=== PATIENT | male | born 1990 | race Caucasian/White ===

== ENCOUNTER 2016-12-17 18:20 | Emergency (ER) | payer MEDICAID ==
[2016-12-17] MEDS ORDERED: Ketorolac INJ* 60 MG/2 ML VIAL IM ONE (18:38)
[2016-12-17] MEDS ORDERED: Cyclobenzaprine TAB* 10 MG PO ONE (18:38)
--- NOTE | 2016-12-17 18:43 | ED ---
Back Pain - HPI Summary HPI Summary: Patient presents with four years of back pain that began without incident or known trauma. He presents today because he quit using heroine daily for pain a month ago and can't deal with the pain. He has has tried 800mg 3-4 times daily without relief and snorted heroine yesterday to help. He denies N/T, incontinence of stool or urine, inability to ambulate or decrease in strength. His pain is made worse with movement. He has pain when he bears down to have a BM. - History of Current Complaint Chief Complaint: EDBackInjuryPain Stated Complaint: BACK PAIN Time Seen by Provider: 12/17/16 18:29 Hx Obtained From: Patient Onset/Duration: Gradual Onset Onset/Duration: Atraumatic - 4 years ago, Still Present Timing: Constant Back Pain Location: Is Discrete @ - low back Severity Initially: Severe Severity Currently: Severe Pain Intensity: 9 Character: Dull, Aching, Spasmodic Aggravating Symptom(s): Movement Alleviating Symptom(s): Nothing Associated Signs And Symptoms: Positive: Pain with Weight Bearing Related History: Previous Back Injury - Allergies/Home Medications Allergies/Adverse Reactions: Allergies Allergy/AdvReac Type Severity Reaction Status Date / Time Diphenhydramine Allergy Rash Verified 05/17/16 12:41 [From Benadryl] PMH/Surg Hx/FS Hx/Imm Hx Endocrine/Hematology History: Denies: Hx Diabetes, Hx Thyroid Disease Cardiovascular History: Denies: Hx Congestive Heart Failure, Hx Deep Vein Thrombosis, Hx Hypertension , Hx Myocardial Infarction, Hx Pacemaker/ICD Respiratory History: Denies: Hx Asthma, Hx Chronic Obstructive Pulmonary Disease (COPD), Hx Lung Cancer, Hx Pneumonia, Hx Pulmonary Embolism GI History: Denies: Hx Gall Bladder Disease, Hx Gastrointestinal Bleed, Hx Ulcer, Hx Urosepsis History: Denies: Hx Kidney Stones, Hx Renal Disease Musculoskeletal History: Reports: Hx Back Problems Neurological History: Denies: Hx Dementia, Hx Migraine, Hx Seizures, Hx Transient Ischemic Attacks (TIA) Psychiatric History: Denies: Hx Anxiety, Hx Depression, Hx Schizophrenia, Hx Bipolar Disorder Infectious Disease History: No Infectious Disease History: Denies: Hx Clostridium Difficile, Hx Hepatitis, Hx Human Immunodeficiency Virus (HIV), Hx of Known/Suspected MRSA, Hx Shingles, Hx Tuberculosis, Traveled Outside the [place] in Last 30 Days - Family History Known Family History: Positive: None Negative: Renal Disease, Blood Disorder - Social History Occupation: Unemployed Lives: With Family Alcohol Use: None Hx Substance Use: No Substance Use Type: Reports: Heroin Substance Use Comment - Amount & Last Used: 12/16/2016 Hx Tobacco Use: Yes Smoking Status (MU): Light Every Day Tobacco Smoker Type: Cigarettes Amount Used/How Often: 1 PPD Cessation Counseling: Patient Advised to Stop Review of Systems Positive: Myalgia. Negative: Decreased ROM, Edema Negative: Weakness, Paresthesia, Numbness Positive: Anxious All Other Systems Reviewed And Are Negative: Yes Physical Exam Triage Information Reviewed: Yes Vital Signs On Initial Exam: Initial Vitals Temp Pulse Resp BP Pulse Ox 98.6 F 78 16 122/82 98 12/17/16 18:22 12/17/16 18:22 12/17/16 18:22 12/17/16 18:22 12/17/16 18:22 Vital Signs Reviewed: Yes Appearance: Positive: Well-Appearing, Well-Nourished, Pain Distress Skin: Positive: Warm, Skin Color Reflects Adequate Perfusion, Dry, Soft Head/Face: Positive: Normal Head/Face Inspection Eyes: Positive: EOMI, JORGE, Conjunctiva Clear ENT: Positive: Hearing grossly normal Neck: Positive: Supple, Nontender, No Lymphadenopathy Respiratory/Lung Sounds: Positive: Breath Sounds Present Cardiovascular: Positive: RRR Musculoskeletal: Positive: Strength/ROM Intact - +SLR bilaterally, Pain @ - TTP bilateral lumbar muscles. Negative: Edema Left, Edema Right Neurological: Positive: Sensory/Motor Intact, Alert, Oriented to Person Place, Time, [place] Bundle Intact Distally, Abnormal Gait Psychiatric: Positive: Affect/Mood Appropriate AVPU Assessment: Alert Diagnostics - Vital Signs Vital Signs Temp Pulse Resp BP Pulse Ox 12/17/16 18:22 98.6 F 78 16 122/82 98 - Laboratory Lab Statement: Any lab studies that have been ordered have been reviewed, and results considered in the medical decision making process. - Radiology No standard instances Xray Interpretation: No Acute Changes Radiology Interpretation Completed By: Radiologist Back Pain Course/Dx - Course Course Of Treatment: [facility] who let me know the patient could be treated with Tramadol and will see one of their providers tomorrow. He will be treated here and discharged back to [facility] - Diagnoses Differential Diagnosis/HQI/PQRI: Positive: Arthritis, Cauda Equina Syndrome, Fracture, Herniated Disc, Osteoporosis, Strain, Sprain Provider Diagnoses: Chronic low back pain Discharge - Discharge Plan Condition: Stable Disposition: HOME Patient Education Materials: Chronic Back Pain (ED) [place]errals: [facility] [place] [facility] [place]Outside] Additional Instructions: Please work with the medical provider at [facility] to help address your pain. 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
--- NOTE | 2016-12-17 19:29 | RAD ---
Indication: Back pain. 5 views of the lumbar spine demonstrate vertebral bodies to be normal in height and alignment. Disc spaces all well-preserved. Pedicles appear intact. IMPRESSION: No fracture or other abnormality of the lumbar spine is noted.
[2016-12-17] MEDS ORDERED: traMADol TAB* 50 MG PO ONE (19:48)
[2016-12-17 20:23] VITALS: BP 133/80
== END 2016-12-17 20:21 | disposition home or self-care (01) ==
LOC: ED 18:20
DX: M54.5 Low back pain (principal); M54.9 Dorsalgia, unspecified; F17.210 Nicotine dependence, cigarettes, uncomplicated; F41.9 Anxiety disorder, unspecified
CPT/HCPCS: 72110; 96372; 99282; A9270-GY; J1885

== ENCOUNTER 2016-12-19 11:02 | Emergency (ER) | payer MEDICAID ==
[2016-12-19 11:21] VITALS: BP 122/81
--- NOTE | 2016-12-19 11:56 | ED ---
Back Pain - HPI Summary HPI Summary: 26 male presents - History of Current Complaint Chief Complaint: EDBackInjuryPain Stated Complaint: BACK PAIN Time Seen by Provider: 12/19/16 11:18 Pain Intensity: 9 - Allergies/Home Medications Allergies/Adverse Reactions: Allergies Allergy/AdvReac Type Severity Reaction Status Date / Time Diphenhydramine Allergy Rash Verified 05/17/16 12:41 [From Benadryl] PMH/Surg Hx/FS Hx/Imm Hx Endocrine/Hematology History: Denies: Hx Diabetes, Hx Thyroid Disease Cardiovascular History: Denies: Hx Congestive Heart Failure, Hx Deep Vein Thrombosis, Hx Hypertension , Hx Myocardial Infarction, Hx Pacemaker/ICD Respiratory History: Denies: Hx Asthma, Hx Chronic Obstructive Pulmonary Disease (COPD), Hx Lung Cancer, Hx Pneumonia, Hx Pulmonary Embolism GI History: Denies: Hx Gall Bladder Disease, Hx Gastrointestinal Bleed, Hx Ulcer, Hx Urosepsis History: Denies: Hx Kidney Stones, Hx Renal Disease Musculoskeletal History: Reports: Hx Back Problems Neurological History: Denies: Hx Dementia, Hx Migraine, Hx Seizures, Hx Transient Ischemic Attacks (TIA) Psychiatric History: Denies: Hx Anxiety, Hx Depression, Hx Schizophrenia, Hx Bipolar Disorder Infectious Disease History: Yes Infectious Disease History: Denies: Hx Clostridium Difficile, Hx Hepatitis, Hx Human Immunodeficiency Virus (HIV), Hx of Known/Suspected MRSA, Hx Shingles, Hx Tuberculosis, Traveled Outside the [place] in Last 30 Days - Family History Known Family History: Positive: None Negative: Renal Disease, Blood Disorder - Social History Alcohol Use: None Hx Substance Use: No Substance Use Type: Reports: Heroin Substance Use Comment - Amount & Last Used: 12/16/2016 Hx Tobacco Use: Yes Smoking Status (MU): Light Every Day Tobacco Smoker Type: Cigarettes Amount Used/How Often: 1 PPD Physical Exam Vital Signs On Initial Exam: Initial Vitals Temp Pulse Resp BP Pulse Ox 98.8 F 78 15 122/81 98 12/19/16 11:13 12/19/16 11:13 12/19/16 11:13 12/19/16 11:13 12/19/16 11:13 Diagnostics - Vital Signs Vital Signs Temp Pulse Resp BP Pulse Ox 12/19/16 11:13 98.8 F 78 15 122/81 98 - Laboratory Lab Statement: Any lab studies that have been ordered have been reviewed, and results considered in the medical decision making process. - Radiology right middle finger Xray Interpretation: Positive (See Comments) - THERE IS AN INTACT NAIL THROUGH THE [place]MAR SOFT TISSUES OF THE RIGHT MIDDLE FINGER DISTAL PHALANX WITH NO VISIBLE INVOLVEMENT OF THE UNDERLYING BONE. Radiology Interpretation Completed By: Radiologist Back Pain Course/Dx - Diagnoses Differential Diagnosis/HQI/PQRI: Positive: Arthritis, Strain, Sprain, Other Provider Diagnoses: Chronic back pain, Spondylosis Discharge - Discharge Plan Condition: Stable Disposition: HOME Patient Education Materials: Chronic Back Pain (ED) Referrals: Tulio Velez MD [Primary Care Provider] - [facility] [place] [facility] [Outside] Cornelio Stapleton MD [Medical Doctor] - Additional Instructions: Please work with the medical provider at [facility] to help address your pain. 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
[2016-12-19] MEDS ORDERED: Ibuprofen TAB* 800 MG PO ONE ×3 (12:26→12:27)
--- NOTE | 2016-12-19 12:47 | RAD ---
Indication: Pain at the T9-T12 levels post fall a few months ago. Comparison: May 17, 2016 CT abdomen pelvis and May 13, 2012 chest radiograph. Technique: AP and lateral views thoracic spine. Report: Normal alignment. Negative for vertebral body fracture. The pedicles appear intact at each level. Mild vertebral endplate osteophytosis at the mid to distal thoracic spine without significant disc space narrowing. Unremarkable paravertebral soft tissue contours. Clear limited visualized lungs and pleural spaces. IMPRESSION: Multilevel mild thoracic degenerative spondylosis with worsening compared with the 2012 exam. No traumatic injury evident.
[2016-12-19] MEDS ORDERED: traMADol TAB* 50 MG PO ONE (14:06)
== END 2016-12-19 14:44 | disposition home or self-care (01) ==
LOC: ED 11:02
DX: M54.9 Dorsalgia, unspecified (principal); M47.9 Spondylosis, unspecified
CPT/HCPCS: 72070; 99282; A9270-GY

== ENCOUNTER 2018-11-29 19:34 | Inpatient (IN) | payer MEDICAID, OTHER ==
[2018-11-29 20:11] LABS: Urine Appearance Clear; Urine Bacteria Absent (Absent); Urine Bilirubin Negative (Negative); Urine Blood 1+ (Negative); Urine Color Yellow; Urine Glucose Negative (Negative); Urine Ketones Trace (Negative); Urine Nitrite Negative (Negative); Urine Protein Negative (Negative); Urine Red Blood Cell Absent (Absent); Urine Urobilinogen Negative (Negative); Urine White Blood Cell Absent (Absent)
[2018-11-29 20:41] LABS: Albumin 4.4 g/dL (3.2-5.2); Anion Gap 9 mmol/L (2-11); CO2 Carbon Dioxide 22 mmol/L (22-32); Calcium 9.6 mg/dL (8.6-10.3); Chloride 103 mmol/L (101-111); Potassium 4.1 mmol/L (3.5-5.0); Sodium 134 mmol/L (135-145)
[2018-11-29 20:42] LABS: ABS Basophils 0.1 10^3/ul (0-0.2); ABS Eosinophils 0.1 10^3/ul (0-0.6); ABS Lymphocytes 2.5 10^3/ul (1.0-4.8); ABS Neutrophils 5.4 10^3/ul (1.5-7.7); ABS Nucleated RBC 0 10^3/ul; Eosinophil % 0.9 %; Hematocrit 39 % (42-52); Hemoglobin 13.1 g/dl (14.0-18.0); Lymphocyte % 27.7 %; Mean Corpuscular HGB Conc 33 g/dl (31-36); Mean Corpuscular Hemoglobin 31 pg (27-31); Mean Corpuscular Volume 93 fL (80-94); Mean Platelet Volume 9.8 fL (7.4-10.4); Nucleated Red Blood Cells % 0; Platelet Count 122 10^3/ul (150-450); Red Blood Count 4.21 10^6/ul (4.00-5.40); Red Cell Distribution Width 15 % (10.5-15); White Blood Count 9.1 10^3/ul (3.5-10.8)
[2018-11-29 20:46] LABS: ALT 65 U/L (7-52); AST 35 U/L (13-39); Albumin/Globulin Ratio 1.2 (1-3); Alkaline Phosphatase 82 U/L (34-104); BUN/Creatinine Ratio 12.1 (8-20); Blood Urea Nitrogen 8 mg/dL (6-24); C Reactive Protein 126.48 mg/L (<8.01); EGFR African American 173.9 (>60); EGFR Non-African American 143.7 (>60); Globulin 3.8 g/dL (2-4); Glucose 78 mg/dL (70-100); Total Protein 8.2 g/dL (6.4-8.9)
[2018-11-29] MEDS ORDERED: Acetaminophen TAB* 325 MG PO ONE (21:05)
[2018-11-29] MEDS ORDERED: Diazepam TAB(*) 5 MG PO ONE (21:09)
[2018-11-29] MEDS ORDERED: Iohexol 300* (CONTRAST) 10 ML SDV IV ONE (21:11)
[2018-11-29] MEDS ORDERED: Morphine VIAL* 10 MG/ML 1 ML VIAL IV ONE (23:06)
[2018-11-29] MEDS ORDERED: NS 0.9% 1000 ML** 1,000 ML IV ONE (23:06)
[2018-11-29] MEDS ORDERED: cefTRIAXone(*) 1 GM in NS 0.9% 50 ML* 50 ML IVPB ONE (23:09)
[2018-11-29] MEDS ORDERED: Vancomycin(*) 1,000 MG in NS 0.9% 250 ML* 250 ML IVPB ONE (23:09)
--- NOTE | 2018-11-29 23:17 | ED ---
Back Pain - HPI Summary HPI Summary: Patient complains of sudden onset back pain 2 weeks, worse over the past 4 days. States some shortness of breath when pain is intense. Pain currently rated 9/10. Denies prior history of same pain, trauma, GOMEZ, fever, cough, sore throat, CP, SOB, N/V/D, abdominal pain, change in urine, change in BM, penis or testicular symptoms. Denies medical history. Patient on Suboxone, states last IV drug use December 2017. Denies EtOH. - History of Current Complaint Chief Complaint: EDBackInjuryPain Stated Complaint: BACK PAIN Time Seen by Provider: 11/29/18 19:46 Hx Obtained From: Patient Onset/Duration: Sudden Onset Onset/Duration: Started Weeks Ago Timing: Constant Back Pain Location: Is Discrete @ Severity Initially: Severe Severity Currently: Severe Pain Intensity: 10 Pain Scale Used: 0-10 Numeric Character: Throbbing, Spasmodic Aggravating Symptom(s): Movement Alleviating Symptom(s): Position Associated Signs And Symptoms: Positive: Negative - Allergies/Home Medications Allergies/Adverse Reactions: Allergies Allergy/AdvReac Type Severity Reaction Status Date / Time diphenhydramine Allergy Mild Rash Verified 11/30/18 01:32 Home Medications: Home Medications Buprenorp/Nalox 8-2 MG FILM [Suboxone 8 mg-2 mg Sl Film] 1 each SL BID 11/29/18 [History Confirmed 11/29/18] Omeprazole 40 mg PO DAILY 11/29/18 [History Confirmed 11/29/18] Sertraline HCl 100 mg PO DAILY 11/29/18 [History Confirmed 11/29/18] Zolpidem Tartrate [Ambien] 10 mg PO ACHS 11/29/18 [History Confirmed 11/29/18] PMH/Surg Hx/FS Hx/Imm Hx Endocrine/Hematology History: Denies: Hx Diabetes, Hx Thyroid Disease Cardiovascular History: Denies: Hx Congestive Heart Failure, Hx Deep Vein Thrombosis, Hx Hypertension , Hx Myocardial Infarction, Hx Pacemaker/ICD Respiratory History: Denies: Hx Asthma, Hx Chronic Obstructive Pulmonary Disease (COPD), Hx Lung Cancer, Hx Pneumonia, Hx Pulmonary Embolism GI History: Denies: Hx Gall Bladder Disease, Hx Gastrointestinal Bleed, Hx Ulcer, Hx Urosepsis History: Denies: Hx Kidney Stones, Hx Renal Disease Musculoskeletal History: Reports: Hx Back Problems EENT History: Denies: Hx Deafness Neurological History: Denies: Hx Dementia, Hx Migraine, Hx Seizures, Hx Transient Ischemic Attacks (TIA), Other Neuro Impairments/Disorders Psychiatric History: Denies: Hx Anxiety, Hx Depression, Hx Schizophrenia, Hx Bipolar Disorder - Surgical History Surgery Procedure, Year, and Place: none Infectious Disease History: No Infectious Disease History: Denies: Hx Clostridium Difficile, Hx Hepatitis, Hx Human Immunodeficiency Virus (HIV), Hx of Known/Suspected MRSA, Hx Shingles, Hx Tuberculosis, Traveled Outside the [place] in Last 30 Days - Family History Known Family History: Positive: None Negative: Renal Disease, Blood Disorder - Social History Alcohol Use: None Hx Substance Use: No Substance Use Type: Reports: Heroin, Marijuana Substance Use Comment - Amount & Last Used: pt denies opioid use, on suboxone Hx Tobacco Use: Yes Smoking Status (MU): Light Every Day Tobacco Smoker Type: Cigarettes Amount Used/How Often: 1 PPD Review of Systems Constitutional: Negative Eyes: Negative ENT: Negative Cardiovascular: Negative Respiratory: Negative Gastrointestinal: Negative Genitourinary: Negative Musculoskeletal: Other Skin: Negative Neurological: Negative Psychological: Normal All Other Systems Reviewed And Are Negative: Yes Physical Exam - Summary Physical Exam Summary: Bony point tenderness along thoracic spine. No evidence of ecchymosis, erythema , deformity, swelling, mass. Mild paraspinal muscle tenderness to palpation along thoracic spine. Abdomen soft nontender. PMS intact in lower extremities. Extension of bilateral hips increases back pain. Triage Information Reviewed: Yes Vital Signs On Initial Exam: Initial Vitals Temp Pulse Resp BP Pulse Ox 98.4 F 79 20 121/88 94 11/29/18 19:35 11/29/18 19:35 11/29/18 19:35 11/29/18 19:35 11/29/18 19:35 Vital Signs Reviewed: Yes Appearance: Positive: Well-Appearing Skin: Positive: Warm Head/Face: Positive: Normal Head/Face Inspection Eyes: Positive: Normal ENT: Positive: Normal ENT inspection Neck: Positive: Supple Respiratory/Lung Sounds: Positive: Clear to Auscultation Cardiovascular: Positive: Normal Abdomen Description: Positive: Nontender Musculoskeletal: Positive: Normal Neurological: Positive: Normal Psychiatric: Positive: Normal AVPU Assessment: Alert - [place] Coma Scale Best Eye Response: 4 - Spontaneous Best Motor Response: 6 - Obeys Commands Best Verbal Response: 5 - Oriented Coma Scale Total: 15 Diagnostics - Vital Signs Vital Signs Temp Pulse Resp BP Pulse Ox 11/29/18 22:47 99.1 F 14 11/29/18 22:45 81 119/67 95 11/29/18 21:42 98.4 F 72 16 141/88 99 11/29/18 21:21 16 11/29/18 19:35 98.4 F 79 20 121/88 94 - Laboratory Lab Results: Lab Results 11/29/18 11/29/18 11/29/18 Range/Units 19:54 20:23 20:23 WBC 9.1 (3.5-10.8) 10^3/ul RBC 4.21 (4.00-5.40) 10^6/ul Hgb 13.1 L (14.0-18.0) g/dl Hct 39 L (42-52) % MCV 93 (80-94) fL MCH 31 (27-31) pg MCHC 33 (31-36) g/dl RDW 15 (10.5-15) % Plt Count 122 L (150-450) 10^3/ul MPV 9.8 (7.4-10.4) fL Neut % (Auto) 59.4 % Lymph % (Auto) 27.7 % [place] % (Auto) 11.4 % Eos % (Auto) 0.9 % Baso % (Auto) 0.6 % Absolute Neuts (auto) 5.4 (1.5-7.7) 10^3/ul Absolute Lymphs (auto) 2.5 (1.0-4.8) 10^3/ul Absolute Monos (auto) 1.0 H (0-0.8) 10^3/ul Absolute Eos (auto) 0.1 (0-0.6) 10^3/ul Absolute Basos (auto) 0.1 (0-0.2) 10^3/ul Absolute Nucleated RBC 0 10^3/ul Nucleated RBC % 0 D-Dimer, Quantitative (Less Than 230) ng/mL Sodium 134 L (135-145) mmol/L Potassium 4.1 (3.5-5.0) mmol/L Chloride 103 (101-111) mmol/L Carbon Dioxide 22 (22-32) mmol/L Anion Gap 9 (2-11) mmol/L BUN 8 (6-24) mg/dL Creatinine 0.66 L (0.67-1.17) mg/dL Est GFR ( Amer) 173.9 (>60) Est GFR (Non-Af Amer) 143.7 (>60) BUN/Creatinine Ratio 12.1 (8-20) Glucose 78 (70-100) mg/dL Lactic Acid (0.5-2.0) mmol/L Calcium 9.6 (8.6-10.3) mg/dL Total Bilirubin 0.50 (0.2-1.0) mg/dL AST 35 (13-39) U/L ALT 65 H (7-52) U/L Alkaline Phosphatase 82 (34-104) U/L C-Reactive Protein 126.48 H (<8.01) mg/L Total Protein 8.2 (6.4-8.9) g/dL Albumin 4.4 (3.2-5.2) g/dL Globulin 3.8 (2-4) g/dL Albumin/Globulin Ratio 1.2 (1-3) Lipase < 10 L (11.0-82.0) U/L Urine Color Yellow Urine Appearance Clear Urine pH 6.0 (5-9) Ur Specific [place] 1.010 (1.010-1.030) Urine Protein Negative (Negative) Urine Ketones Trace A (Negative) Urine Blood 1+ A (Negative) Urine Nitrate Negative (Negative) Urine Bilirubin Negative (Negative) Urine Urobilinogen Negative (Negative) Ur Leukocyte Esterase Negative (Negative) Urine WBC (Auto) Absent (Absent) Urine RBC (Auto) Absent (Absent) Urine Bacteria Absent (Absent) Urine Glucose Negative (Negative) 11/29/18 11/29/18 Range/Units 20:23 20:23 WBC (3.5-10.8) 10^3/ul RBC (4.00-5.40) 10^6/ul Hgb (14.0-18.0) g/dl Hct (42-52) % MCV (80-94) fL MCH (27-31) pg MCHC (31-36) g/dl RDW (10.5-15) % Plt Count (150-450) 10^3/ul MPV (7.4-10.4) fL Neut % (Auto) % Lymph % (Auto) % [place] % (Auto) % Eos % (Auto) % Baso % (Auto) % Absolute Neuts (auto) (1.5-7.7) 10^3/ul Absolute Lymphs (auto) (1.0-4.8) 10^3/ul Absolute Monos (auto) (0-0.8) 10^3/ul Absolute Eos (auto) (0-0.6) 10^3/ul Absolute Basos (auto) (0-0.2) 10^3/ul Absolute Nucleated RBC 10^3/ul Nucleated RBC % D-Dimer, Quantitative 251 H (Less Than 230) ng/mL Sodium (135-145) mmol/L Potassium (3.5-5.0) mmol/L Chloride (101-111) mmol/L Carbon Dioxide (22-32) mmol/L Anion Gap (2-11) mmol/L BUN (6-24) mg/dL Creatinine (0.67-1.17) mg/dL Est GFR ( Amer) (>60) Est GFR (Non-Af Amer) (>60) BUN/Creatinine Ratio (8-20) Glucose (70-100) mg/dL Lactic Acid 0.6 (0.5-2.0) mmol/L Calcium (8.6-10.3) mg/dL Total Bilirubin (0.2-1.0) mg/dL AST (13-39) U/L ALT (7-52) U/L Alkaline Phosphatase (34-104) U/L C-Reactive Protein (<8.01) mg/L Total Protein (6.4-8.9) g/dL Albumin (3.2-5.2) g/dL Globulin (2-4) g/dL Albumin/Globulin Ratio (1-3) Lipase (11.0-82.0) U/L Urine Color Urine Appearance Urine pH (5-9) Ur Specific [place] (1.010-1.030) Urine Protein (Negative) Urine Ketones (Negative) Urine Blood (Negative) Urine Nitrate (Negative) Urine Bilirubin (Negative) Urine Urobilinogen (Negative) Ur Leukocyte Esterase (Negative) Urine WBC (Auto) (Absent) Urine RBC (Auto) (Absent) Urine Bacteria (Absent) Urine Glucose (Negative) Result Diagrams: 11/29/18 20:23 11/29/18 20:23 Lab Statement: Any lab studies that have been ordered have been reviewed, and results considered in the medical decision making process. Back Pain Course/Dx - Course Course Of Treatment: Patient complains of sudden onset back pain 2 weeks, worse over the past 4 days. States some shortness of breath when pain is intense. Denies prior history of same pain, trauma, GOMEZ, fever, cough, sore throat, CP, SOB, N/V/D, abdominal pain, change in urine, change in BM, penis or testicular symptoms. Denies medical history. Patient on Suboxone, states last IV drug use December 2017. Denies EtOH. Physical exam:Bony point tenderness along thoracic spine. No evidence of ecchymosis, erythema, deformity, swelling , mass. Mild paraspinal muscle tenderness to palpation along thoracic spine. Abdomen soft nontender. PMS intact in lower extremities. Extension of bilateral hips increases back pain. Patient initially refusing opiates. No relief with Tylenol or Valium. Vital signs within normal limits. WBC within normal limits. CRP 126. CT abdomen and pelvis with contrast essentially negative. Symptoms concerning for epidural abscess. D-dimer 251. (At this time more concern for spinal abscess then pulmonary embolism. However patient will be admitted and CTA can be performed later if indicated.) Will initiate IV antibiotics, admit to hospitalist, pending MRI in the morning for further evaluation of possible spinal abscess. - Diagnoses Provider Diagnoses: Back pain Discharge - Sign-Out/Discharge Documenting (check all that apply): Patient Departure Patient Received Moderate/Deep Sedation with Procedure: No - Discharge Plan Condition: Stable Disposition: ADMITTED TO [facility] - Billing Disposition and Condition Condition: STABLE Disposition: Admitted to [facility]
[2018-11-29] MEDS ORDERED: Ketorolac INJ* 30 MG/ML 1 ML VIAL IV PUSH ONE (23:22)
[2018-11-30] MEDS ORDERED: Nicotine Lozenge* 4 MG LOZENGE MT PRN (01:10)
[2018-11-30] MEDS ORDERED: NS 0.9% 1000 ML** 1,000 ML IV SCH (01:15)
[2018-11-30] MEDS ORDERED: Vancomycin per Pharmacy* NOTE FOLLOW UP SCH (02:00)
[2018-11-30 02:05] LABS: Creatine Kinase 45 U/L (10-223)
[2018-11-30] MEDS ORDERED: hydrOXYzine HCL TAB* 25 MG PO PRN (02:52)
[2018-11-30] MEDS ORDERED: Buprenorphine TAB* 8 MG PO SCH (03:00)
[2018-11-30] MEDS ORDERED: Buprenorphine TAB* 2 MG TAB.SL SL SCH (03:00)
[2018-11-30] MEDS ORDERED: Buprenorphine TAB* 2 MG TAB.SL PO SCH (03:00)
[2018-11-30 04:26] LABS: Influenza A Molecular NEGATIVE (Negative); Influenza B Molecular NEGATIVE (Negative)
[2018-11-30] MEDS ORDERED: cefTRIAXone(*) 1 GM in NS 0.9% 50 ML* 50 ML IVPB ONE (04:30)
[2018-11-30] MEDS: Buprenorphine TAB* 8 MG SL SCH ×3 (05:01→21:37)
[2018-11-30] MEDS: Heparin VIAL(*) 5000 UNITS/ML VIAL (FIVE THOUSAND) SUBCUT SCH ×3 (05:04→21:38)
[2018-11-30] MEDS ORDERED: Vancomycin(*) 1,000 MG in NS 0.9% 250 ML* 250 ML IVPB SCH (06:00)
--- NOTE | 2018-11-30 06:07 | HP ---
HISTORY AND PHYSICAL: DATE OF ADMISSION: 11/30/18. PRIMARY CARE PROVIDER: Kimberlee Nieves MD. CLINICAL REGISTERED NURSE: Tori Sofia, his mother. CODE STATUS: Full. CHIEF COMPLAINT: Back pain and headache. SOURCE OF INFORMATION: HPI is obtained from review of medical chart, and interview with the patient. The patient is an adequate historian. HISTORY OF PRESENT ILLNESS: 28-year-old male with past medical history of opiate use disorder, currently in remission on MAT/Suboxone since December of 2017, tobacco use, and history of chronic low and midback pain, who presents to the emergency room [facility] with complaints of subacute back pain for the last two weeks that has rapidly increased in intensity in the last four days. The patient said that the pain started in his midback gradually and it increasingly became worse to the point where for the last two days it had sharp, stabbing chronic midback pain that radiates to an area under his left ribcage and has no relieving factors. He does say that bending his head towards his chest and raising his knees makes the pain particularly worse and it got to the point where he has been unable to sleep for the past 24 hours, could not find a position where he could get comfortable. Furthermore, for the last 24 hours he says that he has had subjective fevers and chills although he measured his temperature at home and it was not elevated. He also says that the pain gets so bad at times that he has to take short, shallow breaths when it is very intense. Furthermore, he said that this pain has been accompanied with a headache without vision changes off and on for the last week. ROS: He denies any oral complaints or sore throat or dysphagia. He denies any rommel chest pain or palpitations. He denies any cough. He denies any nausea, vomiting, diarrhea or constipation. He does say that he has mild left upper quadrant pain in terms of his abdomen, really feels that it is more underneath his ribcage and only when it is radiating from the back. He denies diffuse myalgias, or arthralgias or weakness. He denies any new rashes or lesions. He denies any focal weakness or numbness. He denies any worsening depression or anxiety. He denies any hematuria or dysuria, any polyuria, or polydipsia. He denies easy bruising or bleeding or any new lymphadenopathy and he says he has not been around any sick contacts and he has had no new changes in his activity or no inciting factors that he can think of. EMERGENCY ROOM COURSE: When the patient arrived, his vital signs are stable. His temperature is 99.1. His respiratory rate is 14. His pulse is 68 and sinus. His blood pressure is 110/63. Labs show thrombocytopenia to 122. D- dimer is elevated at 251. Sodium is 134, ALT is mildly elevated at 65. He had a CRP level that is greater than 100. Urinalysis is done that shows no active signs of infection. CT of the abdomen was completed that showed mild bladder thickening, but otherwise no acute findings. A thoracic spine radiograph shows no acute fracture or bony pathology. Flu swab was not done. The patient received ceftriaxone, Valium, Ketoralac, and vancomycin and the hospitalist team was asked to evaluate this patient for further monitoring, diagnostics, and treatment. PAST MEDICAL HISTORY: Opiate use disorder, polysubstance abuse, both in remission since December 2017, depression prior chronic low back pain tobacco use. PAST SURGICAL HISTORY: History of an appendectomy. MEDICATIONS: 1. Buprenorphine/naloxone 05/01 one sublingual strip b.i.d. He has recently lowered his dose from 09/01 b.i.d. 2. Omeprazole 40 mg p.o. daily. 3. Sertraline 100 mg daily. 4. Zolpidem 10 mg p.o. q.h.s. p.r.n. for sleep. ALLERGIES: He has allergy to DIPHENHYDRAMINE. FAMILY HISTORY: His mother has a history of DVTs, but otherwise is alive and well. His father has a history of polysubstance abuse. SOCIAL HISTORY: He lives at home with his mother in [place] and currently he is not working as he is attending intensive outpatient therapy at [facility] in [place]. Tob: He smokes about a pack a day. He has a 74-vgtk-tcoo history. Alcohol: currently does not drink alcohol. Illicits: He is a former IV drug user of heroin and has been in remission for the past year and currently on Suboxone. REVIEW OF SYSTEMS: As per HPI with the only other pertinent review of systems he said is that he did have about 2 weeks ago mild lower extremity edema that resolved on its own. PHYSICAL EXAMINATION GENERAL APPEARANCE: He is a young man lying very still in bed in mild distress , well-developed, well-nourished, pleasant and cooperative with exam. VITAL SIGNS: At the time physical exam, the patient's vital signs are temperature of 98.7, pulse is 69, respiratory rate of 16, oxygen saturation 98% on room air, and blood pressure of 124/86. NECK: His neck is mildly rigid with limited ROM and he has no cervical lymphadenopathy or supraclavicular lymphadenopathy. HEENT: The patient is normocephalic and atraumatic. His pupils are equal and reactive to light. His extraocular muscles are intact. His sclerae are anicteric. His oropharynx is clear with dry mucous membranes. He has fair dentition with no obvious lesions or ulcers. RESPIRATORY: He is clear to auscultation bilaterally. CARDIAC: He has regular rate and rhythm with no murmurs, rubs, or gallops. GI: Belly is soft, nondistended, mildly tender to palpation in the left upper quadrant. No guarding, no rebound. Mildly enlarged liver with palpable liver edge : He has no suprapubic tenderness and no concerning rashes or lesions at the genital area. BACK AND SPINE: The patient has limited range of motion in flexion of his spine. He can flex only to about 30 degrees before he gets significant pain in his thoracic spine that radiates up. Furthermore, he has limited flexion of his neck and says that he gets immediate back pain when he tries to touch his chin to his chest. He has acute point tenderness to thoracic paraspinal muscles that persists to about the level of L1-L2. Otherwise, unremarkable back exam. His straight leg raise is negative bilaterally, although he does have pain on moving his knee up towards his chest. He describes that tightness. EXTREMITIES: He moves his lower extremities and upper extremities free with no tenderness to motion. NEUROLOGIC: His cranial nerves II through XII are intact. He has 5/5 strength in upper extremities and lower extremities. His sensation is intact. He is A and O x4. As above, I am concerned, he has some mild meningeal signs with +/- flexion of knees during flexion of neck to chin (Brudzinski), neg Kernigs sign SKIN: No overlying skin changes and he has scattered tattoos none of which are new and no new ulcers. DIAGNOSTIC STUDIES/LAB DATA: His white blood cell count of 9.1, hemoglobin of 13.1, hematocrit of 39, and platelets of 122. CMP was done that showed a sodium of 134, potassium of 4.1, chloride of 103, carbon dioxide of 22, BUN of 8 , creatinine of 0.6, glucose of 78, lactic acid of 0.6. AST of 35, ALT of 65, alkaline phosphatase of 82. CK was done shows 45. CRP is 126. Lipase is less than 10. UA was done which shows trace ketones and 1+ blood, but otherwise unremarkable. Abdomen and pelvis CT was performed which shows mild hepatomegaly, mild splenomegaly, status post appendectomy, mild urinary bladder thickening, trace free fluid in the pelvis and no other acute CT pathology. Thoracic spine radiograph was done that showed no acute fracture or bony abnormalities and lung parenchyma shows no active cardiopulmonary disease. Imaging and labs were reviewed by myself. ASSESSMENT AND PLAN: 28-year-old male with a past medical history of opiate use disorder in remission on medication-assisted therapy since December 2017, prior chronic low back pain, and tobacco use who presented with subacute back pain and elevated CRP of unknown origin. Differential for an elevated CRP includes bacterial and viral infections. Currently, his localizing symptoms are to acute spinal tenderness to the thoracic spine, along with GOMEZ and mild nuchal rigidity. 1. Back pain. As above differential includes possible spinal abscess, furthermore, can't r/o source of infection as meningitis. Performing a lumbar puncture without MRI or knowledge of whether there is spinal abscess is likely not safe. He is currently covered with vancomycin and ceftriaxone, which is reasonable and rec'd Meningitis dosing for both x1. --Continue abx while the workup is ongoing. --We will rule out spinal abscess with MRI of thoracic and lumbar spine in the morning. --Pain control is with Toradol around the clock and increasing Suboxone dosing from 8/2 to 12/3 b.i.d. can increase to 12/3 t.i.d. as needed. 2. Elevated CRP. As above, this is generally associated with infection. He also has mild thrombocytopenia, which is new. He has been pancultured. We will watch closely for developing source. We will continue with IV fluids for an additional 1 L at 125 cc per hour. We will also obtain a flu swab for this patient. 3. Thrombocytopenia likely in the setting of infection. He has no new medications. We will continue to monitor, furthermore he is elected for HIV test, which we can draw on morning labs. --Furthermore, pt has never been test for HIV and elects to be 4. Opiate use disorder. His home dose of buprenorphine is 8/2 b.i.d. He has been recently changed from 12/3 b.i.d., we will increase to 12/3 b.i.d. and up to t.i.d. here for pain control. The patient does not want opioid pain medication control unless absolutely necessary and we will attempt honor this request. 5. Depression. Continue Sertraline 100mg daily and Zolpidem 10 QHS, both prescribed by outside provider 6. Tobacco use. We will offer nicotine replacement therapy. 7. FEN. Unrestricted 8. DVT prophylaxis. We will start subcu heparin. 9. Code status: The patient is full code. Plan of care was discussed with the patient, who is in agreement for being admitted to the medical floor for further treatment and evaluation and his PCP will be notified on this admission. TIME SPENT: Forty minutes were spent on the execution of this H and P on admission with over half of that spent directly to the bedside with the patient , providing direct patient care. [id number]/[facility] #: [id number] NEREIDA
[2018-11-30] MEDS: Ketorolac INJ* 30 MG/ML 1 ML VIAL IV PUSH PRN (08:30)
[2018-11-30] MEDS: Acetaminophen TAB* 325 MG PO PRN (08:40)
[2018-11-30] MEDS: Sertraline* 100 MG TAB PO SCH (08:40)
[2018-11-30] MEDS: Nicotine PATCH 14 MG/24 HR* PATCH TRANSDERM SCH (08:55)
[2018-11-30] MEDS: Lidocaine PATCH 5%* 1 PATCH TRANSDERM SCH (08:59)
[2018-11-30] MEDS: cefTRIAXone VIAL(*) 1,000 MG VIAL IM SCH (11:54)
[2018-11-30] MEDS: Linezolid TAB* 600 MG PO SCH ×2 (11:56→21:35)
--- NOTE | 2018-11-30 14:23 | PN ---
Subjective Date of Service: 11/30/18 Interval History: Patient seen this morning. Nurse staff contacted me as he lost IV access and unable to start new IV site despite multiple attempts by several staff member. Also the nurse did notify me that accidentally he was given extra dose of suboxone 8mg, for a total of 20 mg of suboxone this morning (his scheduled dose was 12 mg). Patient seen and assess at bedside. I did order to place him on tele, and vitals Q 1hrs. Patient is conversing with me. He verbalized to me that he will be leaving this evening and he does not want to stay overnight. " I only stayed because the emergency room doctor told me that I will be staying and I can leave after my MRI..."! I attempted to clarify to him that the MRI will be done tomorrow in am unless there is emergency. The MRI would not dictate if he can leave. We do still have to wait for the BC etc...! He started to use the *F word and S* word. I asked him to refrain from using this kind of language. I did leave the room and I asked for a nursing staff to be present with me in the room for the remaining of the interview. I did go back to the room with nursing staff. I explained to him that the MRI won't be done unless there is an emergency and he will need IV abx. However; if he is not going to stay overnight, I can not justify the risk of placing central line and him decide to leave AMA later on this evening. When I asked him if he willing to stay, he replied "I have not decided..." I did order ceftriaxone 2 gm IM for now, zyvox 600 mg bid! Vanco and IV ceftriaxone on hold. If he refused to stay later on he can sign AMA, he is not medically cleared for discharge. If he remains, will need to have Picc line place, only if he agreeable to stay. Past Medical History: Unchanged from Admission Objective Active Medications: Acetaminophen (Tylenol Tab*) 650 mg PO Q4H PRN PRN Reason: FEVER/PAIN Last Admin: 11/30/18 08:40 Dose: 650 mg Buprenorphine HCl (Subutex Tab*) 8 mg SL BID YASMANY Last Admin: 11/30/18 08:39 Dose: 8 mg Ceftriaxone Sodium (Rocephin Vial(*)) 2,000 mg IM Q24H [facility] Last Admin: 11/30/18 11:54 Dose: 2,000 mg Heparin Sodium (Porcine) (Heparin Vial(*)) 5,000 units SUBCUT Q8HR [facility] Last Admin: 11/30/18 05:04 Dose: 5,000 units Hydroxyzine HCl (Atarax Tab*) 25 mg PO Q4H PRN PRN Reason: ANXIETY Last Admin: 11/30/18 08:40 Dose: 25 mg Ketorolac Tromethamine (Toradol Inj*) 30 mg IV PUSH Q6H PRN PRN Reason: PAIN Last Admin: 11/30/18 08:30 Dose: 30 mg Lidocaine (Lidoderm 5% Patch*) 1 patch TRANSDERM DAILY [facility] Last Admin: 11/30/18 08:59 Dose: 1 patch Linezolid (Zyvox Tab*) 600 mg PO Q12H [facility] Stop: 12/01/18 10:59 Last Admin: 11/30/18 11:56 Dose: 600 mg Nicotine (Nicotine Patch 14 Mg/24 Hr*) 1 patch TRANSDERM DAILY [facility] Last Admin: 11/30/18 08:55 Dose: Not Given Nicotine Polacrilex (Nicotine Lozenge*) 4 mg MT Q2H PRN PRN Reason: CRAVINGS Pharmacy Profile Note (Lidocaine Patch Remove*) 1 note N/A 2099 [facility] Pharmacy Profile Note (Nicotine Patch Removal Note*) 1 note FOLLOW UP 2099 [facility] Sertraline HCl (Zoloft*) 100 mg PO DAILY [facility] Last Admin: 11/30/18 08:40 Dose: 100 mg Zolpidem Tartrate (Ambien Tab*) 10 mg PO BEDTIME PRN PRN Reason: INSOMNIA Vital Signs - 8 hr 11/30/18 11/30/18 11/30/18 08:00 08:39 08:40 Temperature Pulse Rate Respiratory 14 18 18 Rate Blood Pressure (mmHg) O2 Sat by Pulse Oximetry 11/30/18 11/30/18 11/30/18 08:55 09:14 10:02 Temperature 99.1 F 98.7 F Pulse Rate 73 74 Respiratory 18 16 16 Rate Blood Pressure 120/64 103/51 (mmHg) O2 Sat by Pulse 96 94 Oximetry 11/30/18 11/30/18 11/30/18 10:52 10:53 11:01 Temperature 98.5 F Pulse Rate 68 Respiratory 16 16 16 Rate Blood Pressure 94/65 (mmHg) O2 Sat by Pulse 96 Oximetry 11/30/18 11/30/18 12:06 13:27 Temperature 97.6 F 97.5 F Pulse Rate 62 57 Respiratory 16 16 Rate Blood Pressure 115/73 111/64 (mmHg) O2 Sat by Pulse 100 99 Oximetry Oxygen Devices in Use Now: None Appearance: Agitated, but his manner improved with nursing staff in the room Eyes: No Scleral Icterus Respiratory: Symmetrical Chest Expansion and Respiratory Effort, Clear to Auscultation Cardiovascular: NL Sounds; No Murmurs; No JVD Result Diagrams: 11/29/18 20:23 11/29/18 20:23 Additional Lab and Data: Lab Results 11/29/18 11/29/18 11/29/18 Range/Units 19:54 20:23 20:23 WBC 9.1 (3.5-10.8) 10^3/ul RBC 4.21 (4.00-5.40) 10^6/ul Hgb 13.1 L (14.0-18.0) g/dl Hct 39 L (42-52) % MCV 93 (80-94) fL MCH 31 (27-31) pg MCHC 33 (31-36) g/dl RDW 15 (10.5-15) % Plt Count 122 L (150-450) 10^3/ul MPV 9.8 (7.4-10.4) fL Neut % (Auto) 59.4 % Lymph % (Auto) 27.7 % Tucker % (Auto) 11.4 % Eos % (Auto) 0.9 % Baso % (Auto) 0.6 % Absolute Neuts (auto) 5.4 (1.5-7.7) 10^3/ul Absolute Lymphs (auto) 2.5 (1.0-4.8) 10^3/ul Absolute Monos (auto) 1.0 H (0-0.8) 10^3/ul Absolute Eos (auto) 0.1 (0-0.6) 10^3/ul Absolute Basos (auto) 0.1 (0-0.2) 10^3/ul Absolute Nucleated RBC 0 10^3/ul Nucleated RBC % 0 D-Dimer, Quantitative (Less Than 230) ng/mL Sodium 134 L (135-145) mmol/L Potassium 4.1 (3.5-5.0) mmol/L Chloride 103 (101-111) mmol/L Carbon Dioxide 22 (22-32) mmol/L Anion Gap 9 (2-11) mmol/L BUN 8 (6-24) mg/dL Creatinine 0.66 L (0.67-1.17) mg/dL Est GFR ( Amer) 173.9 (>60) Est GFR (Non-Af Amer) 143.7 (>60) BUN/Creatinine Ratio 12.1 (8-20) Glucose 78 (70-100) mg/dL Lactic Acid (0.5-2.0) mmol/L Calcium 9.6 (8.6-10.3) mg/dL Total Bilirubin 0.50 (0.2-1.0) mg/dL AST 35 (13-39) U/L ALT 65 H (7-52) U/L Alkaline Phosphatase 82 (34-104) U/L C-Reactive Protein 126.48 H (<8.01) mg/L Total Protein 8.2 (6.4-8.9) g/dL Albumin 4.4 (3.2-5.2) g/dL Globulin 3.8 (2-4) g/dL Albumin/Globulin Ratio 1.2 (1-3) Lipase < 10 L (11.0-82.0) U/L Urine Color Yellow Urine Appearance Clear Urine pH 6.0 (5-9) Ur Specific [place] 1.010 (1.010-1.030) Urine Protein Negative (Negative) Urine Ketones Trace A (Negative) Urine Blood 1+ A (Negative) Urine Nitrate Negative (Negative) Urine Bilirubin Negative (Negative) Urine Urobilinogen Negative (Negative) Ur Leukocyte Esterase Negative (Negative) Urine WBC (Auto) Absent (Absent) Urine RBC (Auto) Absent (Absent) Urine Bacteria Absent (Absent) Urine Glucose Negative (Negative) 11/29/18 11/29/18 Range/Units 20:23 20:23 WBC (3.5-10.8) 10^3/ul RBC (4.00-5.40) 10^6/ul Hgb (14.0-18.0) g/dl Hct (42-52) % MCV (80-94) fL MCH (27-31) pg MCHC (31-36) g/dl RDW (10.5-15) % Plt Count (150-450) 10^3/ul MPV (7.4-10.4) fL Neut % (Auto) % Lymph % (Auto) % Tucker % (Auto) % Eos % (Auto) % Baso % (Auto) % Absolute Neuts (auto) (1.5-7.7) 10^3/ul Absolute Lymphs (auto) (1.0-4.8) 10^3/ul Absolute Monos (auto) (0-0.8) 10^3/ul Absolute Eos (auto) (0-0.6) 10^3/ul Absolute Basos (auto) (0-0.2) 10^3/ul Absolute Nucleated RBC 10^3/ul Nucleated RBC % D-Dimer, Quantitative 251 H (Less Than 230) ng/mL Sodium (135-145) mmol/L Potassium (3.5-5.0) mmol/L Chloride (101-111) mmol/L Carbon Dioxide (22-32) mmol/L Anion Gap (2-11) mmol/L BUN (6-24) mg/dL Creatinine (0.67-1.17) mg/dL Est GFR ( Amer) (>60) Est GFR (Non-Af Amer) (>60) BUN/Creatinine Ratio (8-20) Glucose (70-100) mg/dL Lactic Acid 0.6 (0.5-2.0) mmol/L Calcium (8.6-10.3) mg/dL Total Bilirubin (0.2-1.0) mg/dL AST (13-39) U/L ALT (7-52) U/L Alkaline Phosphatase (34-104) U/L C-Reactive Protein (<8.01) mg/L Total Protein (6.4-8.9) g/dL Albumin (3.2-5.2) g/dL Globulin (2-4) g/dL Albumin/Globulin Ratio (1-3) Lipase (11.0-82.0) U/L Urine Color Urine Appearance Urine pH (5-9) Ur Specific [place] (1.010-1.030) Urine Protein (Negative) Urine Ketones (Negative) Urine Blood (Negative) Urine Nitrate (Negative) Urine Bilirubin (Negative) Urine Urobilinogen (Negative) Ur Leukocyte Esterase (Negative) Urine WBC (Auto) (Absent) Urine RBC (Auto) (Absent) Urine Bacteria (Absent) Urine Glucose (Negative) Microbiology and Other Data: Microbiology 11/30/18 03:57 Nasal Screen MRSA (PCR) - Final Nasal Mrsa Not Detected Influenza Types A,B Antigen - Final Specimen received for Influenza A/B Molecular testing Assess/Plan/Problems-Billing Assessment: 28 year old male presented to ED for worsening back at 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 - Patient Problems (1) Back pain Current Visit: Yes Status: Acute Code(s): M54.9 - DORSALGIA, UNSPECIFIED SNOMED Code(s): 650415752 Comment: - Given elevated CPR, and history of opiate dependancy, I do agree that we need to rule out diskitis or osteomyeltitis - although he lacks the fever and WBC we still need to follow up BC - Unable to have IV access, he will need Picc line ONLY IF HE IS AGREABLE TO STAY... OF 11/30/18 2:30PM HE HAS HOT MADE HIS MIND!!! - IM rocephin 2 mg given once, Oral Zyvox pending MRI . - ID consult in am once available - PICC line access if MRI does shows positive for infectious process. - Plan still evolving, and requires the patient cooporations (2) Opiate dependence Current Visit: Yes Status: Acute Code(s): F11.20 - OPIOID DEPENDENCE, UNCOMPLICATED SNOMED Code(s): 15097868 Comment: - Accidently was given suboxone 20 mg in am (instead of 12 mg) - Keep him on tele, check vitals Q 1hrs - Reassess before pm dose, I decreased it to 8 mg (down from 12 mg) - I check Istop and he was tapered from 12 mg am , 8 mg pm down to 8 mg bid starting on November. Therefore I will decrease his current order from 12 bid to 8 mg bid - no Opiate while on suboxone as it will not be effective. (3) DVT prophylaxis Current Visit: Yes Status: Acute Code(s): RSB5289 - SNOMED Code(s): 065954687 Comment: - Heparin SQ
[2018-11-30] MEDS ORDERED: Vancomycin Trough Check NOTE FOLLOW UP ONE (17:30)
[2018-11-30 18:07] LABS: EGFR African American 170.9 (>60); EGFR Non-African American 141.2 (>60); Vancomycin Trough 3.6 mcg/mL
[2018-11-30] MEDS: Lidocaine Patch REMOVE* 1 NOTE MISC SCH (21:41)
[2018-11-30] MEDS: Zolpidem TAB* 10 MG PO PRN (21:45)
[2018-11-30] MEDS: Nicotine Patch Removal NOTE FOLLOW UP SCH (21:48)
[2018-11-30] MEDS ORDERED: cefTRIAXone(*) 2 GM in NS 0.9% 100 ML* 100 ML IVPB SCH (23:00)
[2018-11-30] MEDS ORDERED: cefTRIAXone(*) 1 GM in NS 0.9% 50 ML* 50 ML IVPB SCH (23:00)
[2018-12-01] MEDS ORDERED: Ketorolac INJ* 60 MG/2 ML VIAL IM PRN (02:32)
[2018-12-01] MEDS: Cyclobenzaprine TAB* 10 MG PO PRN (02:56)
[2018-12-01] MEDS: Ketorolac TAB * 10 MG TAB PO PRN ×2 (02:56→13:38)
[2018-12-01] MEDS: Gabapentin CAP(*) 300 MG PO PRN (02:57)
[2018-12-01] MEDS: Heparin VIAL(*) 5000 UNITS/ML VIAL (FIVE THOUSAND) SUBCUT SCH ×3 (05:59→21:41)
[2018-12-01 07:43] LABS: ABS Basophils 0 10^3/ul (0-0.2); ABS Eosinophils 0.1 10^3/ul (0-0.6); ABS Lymphocytes 2.2 10^3/ul (1.0-4.8); ABS Neutrophils 3.3 10^3/ul (1.5-7.7); ABS Nucleated RBC 0 10^3/ul; Eosinophil % 1.3 %; Hematocrit 37 % (42-52); Hemoglobin 12.5 g/dl (14.0-18.0); Lymphocyte % 33.3 %; Mean Corpuscular HGB Conc 34 g/dl (31-36); Mean Corpuscular Hemoglobin 30 pg (27-31); Mean Corpuscular Volume 90 fL (80-94); Mean Platelet Volume 9.7 fL (7.4-10.4); Nucleated Red Blood Cells % 0.1; Platelet Count 118 10^3/ul (150-450); Red Blood Count 4.13 10^6/ul (4.00-5.40); Red Cell Distribution Width 15 % (10.5-15); White Blood Count 6.6 10^3/ul (3.5-10.8)
[2018-12-01 07:52] LABS: Calcium 8.7 mg/dL (8.6-10.3)
[2018-12-01 07:58] LABS: BUN/Creatinine Ratio 16.4 (8-20); EGFR African American 190.5 (>60); EGFR Non-African American 157.4 (>60)
[2018-12-01] MEDS: Sertraline* 100 MG TAB PO SCH (08:33)
[2018-12-01] MEDS: Buprenorphine TAB* 8 MG SL SCH ×2 (08:34→21:41)
[2018-12-01] MEDS: Nicotine PATCH 14 MG/24 HR* PATCH TRANSDERM SCH (08:35)
[2018-12-01] MEDS: Lidocaine PATCH 5%* 1 PATCH TRANSDERM SCH (08:35)
[2018-12-01] MEDS: cefTRIAXone VIAL(*) 1,000 MG VIAL IM SCH (11:00)
[2018-12-01] MEDS: Acetaminophen TAB* 325 MG PO PRN (13:38)
--- NOTE | 2018-12-01 16:38 | PN ---
Subjective Date of Service: 12/01/18 Interval History: Back pain continues Feels aching neck pain with flexion No GOMEZ, visual changes, N/V/LH no weakness Past Medical History: Unchanged from Admission Objective Active Medications: Acetaminophen (Tylenol Tab*) 650 mg PO Q4H PRN PRN Reason: FEVER/PAIN Last Admin: 12/01/18 13:38 Dose: 650 mg Buprenorphine HCl (Subutex Tab*) 8 mg SL BID [facility] Last Admin: 12/01/18 08:34 Dose: 8 mg Cyclobenzaprine HCl (Flexeril Tab*) 10 mg PO TID PRN PRN Reason: PAIN - BACK Last Admin: 12/01/18 02:56 Dose: 10 mg Gabapentin (Neurontin Cap(*)) 600 mg PO BID PRN PRN Reason: PAIN - MILD Last Admin: 12/01/18 02:57 Dose: 600 mg Heparin Sodium (Porcine) (Heparin Vial(*)) 5,000 units SUBCUT Q8HR [facility] Last Admin: 12/01/18 13:35 Dose: 5,000 units Heparin Sodium (Porcine) (Heparin Flush Picc/Ml/Cvc(*)) 1 - 3 ml FLUSH 0600, 1800 [facility]; Protocol Hydroxyzine HCl (Atarax Tab*) 25 mg PO Q4H PRN PRN Reason: ANXIETY Last Admin: 11/30/18 08:40 Dose: 25 mg Ceftriaxone Sodium 2 gm/ (Sodium Chloride) 100 mls @ 200 mls/hr IVPB Q24H [facility] Vancomycin HCl 1,000 mg/ (Sodium Chloride) 250 mls @ 166.667 mls/hr IVPB ONCE [facility]; Protocol Stop: 12/01/18 23:59 Ketorolac Tromethamine (Toradol Inj*) 30 mg IV PUSH Q6H PRN PRN Reason: PAIN Last Admin: 11/30/18 08:30 Dose: 30 mg Ketorolac Tromethamine (Toradol Inj*) 60 mg IM ONCE PRN PRN Reason: PAIN - MILD TO MODERATE Ketorolac Tromethamine (Toradol Tab *) 10 mg PO Q6H PRN PRN Reason: PAIN Last Admin: 12/01/18 13:38 Dose: 10 mg Lidocaine (Lidoderm 5% Patch*) 1 patch TRANSDERM DAILY [facility] Last Admin: 12/01/18 08:35 Dose: 1 patch Nicotine (Nicotine Patch 14 Mg/24 Hr*) 1 patch TRANSDERM DAILY [facility] Last Admin: 12/01/18 08:35 Dose: 1 patch Nicotine Polacrilex (Nicotine Lozenge*) 4 mg MT Q2H PRN PRN Reason: CRAVINGS Pharmacy Consult (Vancomycin Per Pharmacy*) 1 note FOLLOW UP .VANC PER PHARMACY [facility] Pharmacy Profile Note (Lidocaine Patch Remove*) 1 note N/A 2099 [facility] Last Admin: 11/30/18 21:41 Dose: 1 note Pharmacy Profile Note (Nicotine Patch Removal Note*) 1 note FOLLOW UP 2099 [facility] Last Admin: 11/30/18 21:48 Dose: Not Given Sertraline HCl (Zoloft*) 100 mg PO DAILY [facility] Last Admin: 12/01/18 08:33 Dose: 100 mg Zolpidem Tartrate (Ambien Tab*) 10 mg PO BEDTIME PRN PRN Reason: INSOMNIA Last Admin: 11/30/18 21:45 Dose: 10 mg Vital Signs - 8 hr 12/01/18 12/01/18 12/01/18 08:34 10:41 11:13 Temperature 98.3 F Pulse Rate 59 Respiratory 16 14 16 Rate Blood Pressure 113/65 (mmHg) O2 Sat by Pulse 95 Oximetry 12/01/18 15:46 Temperature 98.4 F Pulse Rate 58 Respiratory 17 Rate Blood Pressure 116/72 (mmHg) O2 Sat by Pulse 96 Oximetry Oxygen Devices in Use Now: None Appearance: nad Eyes: No Scleral Icterus Ears/Nose/Mouth/Throat: NL Teeth, Lips, Gums, - - poor dentition Neck: NL Appearance and Movements; NL JVP, Trachea Midline Respiratory: Symmetrical Chest Expansion and Respiratory Effort, Clear to Auscultation Cardiovascular: RRR Abdominal: NL Sounds; No Tenderness; No Distention, No Hepatosplenomegaly Lymphatic: No Cervical Adenopathy Extremities: No Edema, No Clubbing, Cyanosis, - - tender to palpation midline from about L5 up to T8 Neurological: Alert and Oriented x 3, NL Muscle Strength and Tone Result Diagrams: 12/01/18 07:04 12/01/18 07:04 Additional Lab and Data: Lab Results 11/29/18 11/29/18 11/29/18 Range/Units 19:54 20:23 20:23 WBC 9.1 (3.5-10.8) 10^3/ul RBC 4.21 (4.00-5.40) 10^6/ul Hgb 13.1 L (14.0-18.0) g/dl Hct 39 L (42-52) % MCV 93 (80-94) fL MCH 31 (27-31) pg MCHC 33 (31-36) g/dl RDW 15 (10.5-15) % Plt Count 122 L (150-450) 10^3/ul MPV 9.8 (7.4-10.4) fL Neut % (Auto) 59.4 % Lymph % (Auto) 27.7 % [place] % (Auto) 11.4 % Eos % (Auto) 0.9 % Baso % (Auto) 0.6 % Absolute Neuts (auto) 5.4 (1.5-7.7) 10^3/ul Absolute Lymphs (auto) 2.5 (1.0-4.8) 10^3/ul Absolute Monos (auto) 1.0 H (0-0.8) 10^3/ul Absolute Eos (auto) 0.1 (0-0.6) 10^3/ul Absolute Basos (auto) 0.1 (0-0.2) 10^3/ul Absolute Nucleated RBC 0 10^3/ul Nucleated RBC % 0 D-Dimer, Quantitative (Less Than 230) ng/mL Sodium 134 L (135-145) mmol/L Potassium 4.1 (3.5-5.0) mmol/L Chloride 103 (101-111) mmol/L Carbon Dioxide 22 (22-32) mmol/L Anion Gap 9 (2-11) mmol/L BUN 8 (6-24) mg/dL Creatinine 0.66 L (0.67-1.17) mg/dL Est GFR ( Amer) 173.9 (>60) Est GFR (Non-Af Amer) 143.7 (>60) BUN/Creatinine Ratio 12.1 (8-20) Glucose 78 (70-100) mg/dL Lactic Acid (0.5-2.0) mmol/L Calcium 9.6 (8.6-10.3) mg/dL Total Bilirubin 0.50 (0.2-1.0) mg/dL AST 35 (13-39) U/L ALT 65 H (7-52) U/L Alkaline Phosphatase 82 (34-104) U/L C-Reactive Protein 126.48 H (<8.01) mg/L Total Protein 8.2 (6.4-8.9) g/dL Albumin 4.4 (3.2-5.2) g/dL Globulin 3.8 (2-4) g/dL Albumin/Globulin Ratio 1.2 (1-3) Lipase < 10 L (11.0-82.0) U/L Urine Color Yellow Urine Appearance Clear Urine pH 6.0 (5-9) Ur Specific [place] 1.010 (1.010-1.030) Urine Protein Negative (Negative) Urine Ketones Trace A (Negative) Urine Blood 1+ A (Negative) Urine Nitrate Negative (Negative) Urine Bilirubin Negative (Negative) Urine Urobilinogen Negative (Negative) Ur Leukocyte Esterase Negative (Negative) Urine WBC (Auto) Absent (Absent) Urine RBC (Auto) Absent (Absent) Urine Bacteria Absent (Absent) Urine Glucose Negative (Negative) 11/29/18 11/29/18 Range/Units 20:23 20:23 WBC (3.5-10.8) 10^3/ul RBC (4.00-5.40) 10^6/ul Hgb (14.0-18.0) g/dl Hct (42-52) % MCV (80-94) fL MCH (27-31) pg MCHC (31-36) g/dl RDW (10.5-15) % Plt Count (150-450) 10^3/ul MPV (7.4-10.4) fL Neut % (Auto) % Lymph % (Auto) % [place] % (Auto) % Eos % (Auto) % Baso % (Auto) % Absolute Neuts (auto) (1.5-7.7) 10^3/ul Absolute Lymphs (auto) (1.0-4.8) 10^3/ul Absolute Monos (auto) (0-0.8) 10^3/ul Absolute Eos (auto) (0-0.6) 10^3/ul Absolute Basos (auto) (0-0.2) 10^3/ul Absolute Nucleated RBC 10^3/ul Nucleated RBC % D-Dimer, Quantitative 251 H (Less Than 230) ng/mL Sodium (135-145) mmol/L Potassium (3.5-5.0) mmol/L Chloride (101-111) mmol/L Carbon Dioxide (22-32) mmol/L Anion Gap (2-11) mmol/L BUN (6-24) mg/dL Creatinine (0.67-1.17) mg/dL Est GFR ( Amer) (>60) Est GFR (Non-Af Amer) (>60) BUN/Creatinine Ratio (8-20) Glucose (70-100) mg/dL Lactic Acid 0.6 (0.5-2.0) mmol/L Calcium (8.6-10.3) mg/dL Total Bilirubin (0.2-1.0) mg/dL AST (13-39) U/L ALT (7-52) U/L Alkaline Phosphatase (34-104) U/L C-Reactive Protein (<8.01) mg/L Total Protein (6.4-8.9) g/dL Albumin (3.2-5.2) g/dL Globulin (2-4) g/dL Albumin/Globulin Ratio (1-3) Lipase (11.0-82.0) U/L Urine Color Urine Appearance Urine pH (5-9) Ur Specific [place] (1.010-1.030) Urine Protein (Negative) Urine Ketones (Negative) Urine Blood (Negative) Urine Nitrate (Negative) Urine Bilirubin (Negative) Urine Urobilinogen (Negative) Ur Leukocyte Esterase (Negative) Urine WBC (Auto) (Absent) Urine RBC (Auto) (Absent) Urine Bacteria (Absent) Urine Glucose (Negative) Microbiology and Other Data: Microbiology 11/30/18 03:57 Nasal Screen MRSA (PCR) - Final Nasal Mrsa Not Detected Influenza Types A,B Antigen - Final Specimen received for Influenza A/B Molecular testing Assess/Plan/Problems-Billing Assessment: 28 year old male presented to ED for worsening back 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 - no Opiate while on suboxone as it will not be effective. (3) DVT prophylaxis Comment: - Heparin SQ
[2018-12-01] MEDS ORDERED: Vancomycin(*) 1,250 MG in NS 0.9% 250 ML* 250 ML IVPB ONE ×2 (17:00→19:30)
[2018-12-01] MEDS ORDERED: Vancomycin per Pharmacy* NOTE FOLLOW UP SCH (17:00)
[2018-12-01] MEDS ORDERED: Gadoteridol* (CONTRAST) 279.3 MG/ML 10 ML IV ONE (17:33)
[2018-12-01] MEDS: cefTRIAXone(*) 2 GM in NS 0.9% 100 ML* 100 ML IVPB SCH (18:18)
[2018-12-01] MEDS: Ketorolac INJ* 30 MG/ML 1 ML VIAL IV PUSH PRN (21:40)
[2018-12-01] MEDS: Zolpidem TAB* 10 MG PO PRN (21:41)
[2018-12-01] MEDS: Nicotine Patch Removal NOTE FOLLOW UP SCH (21:55)
[2018-12-01] MEDS: Lidocaine Patch REMOVE* 1 NOTE MISC SCH (21:55)
[2018-12-02] MEDS: Vancomycin(*) 1,000 MG in NS 0.9% 250 ML* 250 ML IVPB SCH ×4 (01:49→19:17)
[2018-12-02] MEDS: Ketorolac INJ* 30 MG/ML 1 ML VIAL IV PUSH PRN ×3 (04:55→17:32)
[2018-12-02] MEDS: Heparin VIAL(*) 5000 UNITS/ML VIAL (FIVE THOUSAND) SUBCUT SCH ×3 (05:36→21:31)
[2018-12-02 05:52] LABS: ABS Basophils 0 10^3/ul (0-0.2); ABS Eosinophils 0.1 10^3/ul (0-0.6); ABS Lymphocytes 1.9 10^3/ul (1.0-4.8); ABS Monocytes 0.9 10^3/ul (0-0.8); ABS Neutrophils 2.8 10^3/ul (1.5-7.7); ABS Nucleated RBC 0 10^3/ul; Eosinophil % 2.2 %; Hematocrit 35 % (42-52); Hemoglobin 12.1 g/dl (14.0-18.0); Lymphocyte % 32.2 %; Mean Corpuscular HGB Conc 35 g/dl (31-36); Mean Corpuscular Hemoglobin 31 pg (27-31); Mean Corpuscular Volume 89 fL (80-94); Mean Platelet Volume 8.2 fL (7.4-10.4); Nucleated Red Blood Cells % 0.1; Platelet Count 138 10^3/ul (150-450); Red Blood Count 3.89 10^6/ul (4.00-5.40); Red Cell Distribution Width 15 % (10.5-15); White Blood Count 5.8 10^3/ul (3.5-10.8)
[2018-12-02 06:00] LABS: INR 1.13 (0.77-1.02)
[2018-12-02] MEDS: Sertraline* 100 MG TAB PO SCH (08:35)
[2018-12-02] MEDS: Buprenorphine TAB* 8 MG SL SCH ×2 (08:35→20:49)
[2018-12-02] MEDS: Nicotine PATCH 14 MG/24 HR* PATCH TRANSDERM SCH (08:35)
[2018-12-02] MEDS: Lidocaine PATCH 5%* 1 PATCH TRANSDERM SCH (08:36)
[2018-12-02] MEDS: Ketorolac TAB * 10 MG TAB PO PRN ×2 (11:29→23:30)
[2018-12-02] MEDS: Cyclobenzaprine TAB* 10 MG PO PRN (11:34)
[2018-12-02 12:41] LABS: Erythrocyte Sed Rate 49 mm/Hr (0-15)
--- NOTE | 2018-12-02 13:08 | PN ---
Progress Note - Progress Note Date of Service: 12/02/18 SOAP: Subjective: []Asked to see patient with back pain, probable thoracic osteomyelitis/discitis at T9-10 with small anterior phlegmon. Patient has had chronic back pain but it worsened in intensity in the last two weeks. He notices increased pain with activity and also has a positive cough/sneeze effect as well as increased pain with neck flexion. He denies any numbness, tingling, or weakness, in his legs. He has no bowel, or bladder dysfunction. He has a history of IV drug use in the past. Objective: []Patient in position C/O back pain Motor, Sensory normal DTR's / Assessment: []Discitis/Osteomyelitis T9-10 Plan: []His epidural component is small and located anteriorly to the cord. At this point no surgery is recommended. I would suggest getting Dr. Centeno involved for mcc antibiotic management.
[2018-12-02] MEDS ORDERED: Vancomycin Trough Check NOTE FOLLOW UP ONE (13:30)
[2018-12-02] MEDS ORDERED: Nicotine Inhaler* 10 MG AMP INH PRN (15:09)
--- NOTE | 2018-12-02 15:58 | PN ---
Subjective Date of Service: 12/02/18 Interval History: Pain in back persists but pain that had been present in legs is now resolved Anxious to have plan determined but calm, cooperative and appropriate No GOMEZ, N/V, LH, weakness, bowel or bladder dysfunction Past Medical History: Unchanged from Admission Objective Active Medications: Acetaminophen (Tylenol Tab*) 650 mg PO Q4H PRN PRN Reason: FEVER/PAIN Last Admin: 12/01/18 13:38 Dose: 650 mg Buprenorphine HCl (Subutex Tab*) 8 mg SL BID [place] Last Admin: 12/02/18 08:35 Dose: 8 mg Cyclobenzaprine HCl (Flexeril Tab*) 10 mg PO TID PRN PRN Reason: PAIN - BACK Last Admin: 12/02/18 11:34 Dose: 10 mg Device (Nicotine Mouth Piece*) 1 each INH ONCE ONE Stop: 12/02/18 16:01 Gabapentin (Neurontin Cap(*)) 600 mg PO BID PRN PRN Reason: PAIN - MILD Last Admin: 12/01/18 02:57 Dose: 600 mg Heparin Sodium (Porcine) (Heparin Vial(*)) 5,000 units SUBCUT Q8HR [facility] Last Admin: 12/02/18 14:52 Dose: 5,000 units Heparin Sodium (Porcine) (Heparin Flush Picc/Ml/Cvc(*)) 1 - 3 ml FLUSH 0600, 1800 [facility]; Protocol Last Admin: 12/02/18 11:28 Dose: 1 ml Hydroxyzine HCl (Atarax Tab*) 25 mg PO Q4H PRN PRN Reason: ANXIETY Last Admin: 11/30/18 08:40 Dose: 25 mg Ceftriaxone Sodium 2 gm/ (Sodium Chloride) 100 mls @ 200 mls/hr IVPB Q24H [facility] Last Admin: 12/01/18 18:18 Dose: 200 mls/hr Vancomycin HCl 1,000 mg/ (Sodium Chloride) 250 mls @ 166.667 mls/hr IVPB Q6H [facility] Last Admin: 12/02/18 14:48 Dose: 166.667 mls/hr Ketorolac Tromethamine (Toradol Inj*) 30 mg IV PUSH Q6H PRN PRN Reason: PAIN Last Admin: 12/02/18 11:23 Dose: 30 mg Ketorolac Tromethamine (Toradol Inj*) 60 mg IM ONCE PRN PRN Reason: PAIN - MILD TO MODERATE Ketorolac Tromethamine (Toradol Tab *) 10 mg PO Q6H PRN PRN Reason: PAIN Last Admin: 12/01/18 13:38 Dose: 10 mg Lidocaine (Lidoderm 5% Patch*) 1 patch TRANSDERM DAILY [facility] Last Admin: 12/02/18 08:36 Dose: 1 patch Nicotine (Nicotine Patch 14 Mg/24 Hr*) 1 patch TRANSDERM DAILY [facility] Last Admin: 12/02/18 08:35 Dose: 1 patch Nicotine (Nicotine Inhaler*) 10 mg INH Q2H PRN PRN Reason: CRAVING Nicotine Polacrilex (Nicotine Lozenge*) 4 mg MT Q2H PRN PRN Reason: CRAVINGS Pharmacy Consult (Vancomycin Per Pharmacy*) 1 note FOLLOW UP .VANC PER PHARMACY [facility] Pharmacy Profile Note (Lidocaine Patch Remove*) 1 note N/A 2099 [facility] Last Admin: 12/01/18 21:55 Dose: 1 note Pharmacy Profile Note (Nicotine Patch Removal Note*) 1 note FOLLOW UP 2099 [facility] Last Admin: 12/01/18 21:55 Dose: 1 note Sertraline HCl (Zoloft*) 100 mg PO DAILY [facility] Last Admin: 12/02/18 08:35 Dose: 100 mg Zolpidem Tartrate (Ambien Tab*) 10 mg PO BEDTIME PRN PRN Reason: INSOMNIA Last Admin: 12/01/18 21:41 Dose: 10 mg Vital Signs - 8 hr 12/02/18 12/02/18 12/02/18 07:53 08:00 08:35 Temperature 98.6 F Pulse Rate 53 Respiratory 16 16 16 Rate Blood Pressure 119/70 (mmHg) O2 Sat by Pulse 97 Oximetry 12/02/18 12/02/18 12/02/18 11:20 11:34 14:04 Temperature 98.9 F Pulse Rate 77 Respiratory 16 20 16 Rate Blood Pressure 131/77 (mmHg) O2 Sat by Pulse 100 Oximetry Oxygen Devices in Use Now: None Appearance: NAD Eyes: No Scleral Icterus Ears/Nose/Mouth/Throat: NL Teeth, Lips, Gums, Clear Oropharnyx Neck: NL Appearance and Movements; NL JVP, Trachea Midline Respiratory: Symmetrical Chest Expansion and Respiratory Effort, Clear to Auscultation Cardiovascular: NL Sounds; No Murmurs; No JVD, RRR Abdominal: NL Sounds; No Tenderness; No Distention, No Hepatosplenomegaly Lymphatic: No Cervical Adenopathy Extremities: No Edema, - - point tenderness lower back midline Skin: No Rash or Ulcers Neurological: Alert and Oriented x 3, NL Muscle Strength and Tone, - - distal reflexes intact, sensation intact Result Diagrams: 12/02/18 05:45 12/01/18 07:04 Additional Lab and Data: Lab Results 11/29/18 11/29/18 11/29/18 Range/Units 19:54 20:23 20:23 WBC 9.1 (3.5-10.8) 10^3/ul RBC 4.21 (4.00-5.40) 10^6/ul Hgb 13.1 L (14.0-18.0) g/dl Hct 39 L (42-52) % MCV 93 (80-94) fL MCH 31 (27-31) pg MCHC 33 (31-36) g/dl RDW 15 (10.5-15) % Plt Count 122 L (150-450) 10^3/ul MPV 9.8 (7.4-10.4) fL Neut % (Auto) 59.4 % Lymph % (Auto) 27.7 % [place] % (Auto) 11.4 % Eos % (Auto) 0.9 % Baso % (Auto) 0.6 % Absolute Neuts (auto) 5.4 (1.5-7.7) 10^3/ul Absolute Lymphs (auto) 2.5 (1.0-4.8) 10^3/ul Absolute Monos (auto) 1.0 H (0-0.8) 10^3/ul Absolute Eos (auto) 0.1 (0-0.6) 10^3/ul Absolute Basos (auto) 0.1 (0-0.2) 10^3/ul Absolute Nucleated RBC 0 10^3/ul Nucleated RBC % 0 D-Dimer, Quantitative (Less Than 230) ng/mL Sodium 134 L (135-145) mmol/L Potassium 4.1 (3.5-5.0) mmol/L Chloride 103 (101-111) mmol/L Carbon Dioxide 22 (22-32) mmol/L Anion Gap 9 (2-11) mmol/L BUN 8 (6-24) mg/dL Creatinine 0.66 L (0.67-1.17) mg/dL Est GFR ( Amer) 173.9 (>60) Est GFR (Non-Af Amer) 143.7 (>60) BUN/Creatinine Ratio 12.1 (8-20) Glucose 78 (70-100) mg/dL Lactic Acid (0.5-2.0) mmol/L Calcium 9.6 (8.6-10.3) mg/dL Total Bilirubin 0.50 (0.2-1.0) mg/dL AST 35 (13-39) U/L ALT 65 H (7-52) U/L Alkaline Phosphatase 82 (34-104) U/L C-Reactive Protein 126.48 H (<8.01) mg/L Total Protein 8.2 (6.4-8.9) g/dL Albumin 4.4 (3.2-5.2) g/dL Globulin 3.8 (2-4) g/dL Albumin/Globulin Ratio 1.2 (1-3) Lipase < 10 L (11.0-82.0) U/L Urine Color Yellow Urine Appearance Clear Urine pH 6.0 (5-9) Ur Specific [place] 1.010 (1.010-1.030) Urine Protein Negative (Negative) Urine Ketones Trace A (Negative) Urine Blood 1+ A (Negative) Urine Nitrate Negative (Negative) Urine Bilirubin Negative (Negative) Urine Urobilinogen Negative (Negative) Ur Leukocyte Esterase Negative (Negative) Urine WBC (Auto) Absent (Absent) Urine RBC (Auto) Absent (Absent) Urine Bacteria Absent (Absent) Urine Glucose Negative (Negative) 11/29/18 11/29/18 Range/Units 20:23 20:23 WBC (3.5-10.8) 10^3/ul RBC (4.00-5.40) 10^6/ul Hgb (14.0-18.0) g/dl Hct (42-52) % MCV (80-94) fL MCH (27-31) pg MCHC (31-36) g/dl RDW (10.5-15) % Plt Count (150-450) 10^3/ul MPV (7.4-10.4) fL Neut % (Auto) % Lymph % (Auto) % [place] % (Auto) % Eos % (Auto) % Baso % (Auto) % Absolute Neuts (auto) (1.5-7.7) 10^3/ul Absolute Lymphs (auto) (1.0-4.8) 10^3/ul Absolute Monos (auto) (0-0.8) 10^3/ul Absolute Eos (auto) (0-0.6) 10^3/ul Absolute Basos (auto) (0-0.2) 10^3/ul Absolute Nucleated RBC 10^3/ul Nucleated RBC % D-Dimer, Quantitative 251 H (Less Than 230) ng/mL Sodium (135-145) mmol/L Potassium (3.5-5.0) mmol/L Chloride (101-111) mmol/L Carbon Dioxide (22-32) mmol/L Anion Gap (2-11) mmol/L BUN (6-24) mg/dL Creatinine (0.67-1.17) mg/dL Est GFR ( Amer) (>60) Est GFR (Non-Af Amer) (>60) BUN/Creatinine Ratio (8-20) Glucose (70-100) mg/dL Lactic Acid 0.6 (0.5-2.0) mmol/L Calcium (8.6-10.3) mg/dL Total Bilirubin (0.2-1.0) mg/dL AST (13-39) U/L ALT (7-52) U/L Alkaline Phosphatase (34-104) U/L C-Reactive Protein (<8.01) mg/L Total Protein (6.4-8.9) g/dL Albumin (3.2-5.2) g/dL Globulin (2-4) g/dL Albumin/Globulin Ratio (1-3) Lipase (11.0-82.0) U/L Urine Color Urine Appearance Urine pH (5-9) Ur Specific [place] (1.010-1.030) Urine Protein (Negative) Urine Ketones (Negative) Urine Blood (Negative) Urine Nitrate (Negative) Urine Bilirubin (Negative) Urine Urobilinogen (Negative) Ur Leukocyte Esterase (Negative) Urine WBC (Auto) (Absent) Urine RBC (Auto) (Absent) Urine Bacteria (Absent) Urine Glucose (Negative) Microbiology and Other Data: Microbiology 11/30/18 03:57 Nasal Screen MRSA (PCR) - Final Nasal Mrsa Not Detected Influenza Types A,B Antigen - Final Specimen received for Influenza A/B Molecular testing Assess/Plan/Problems-Billing Assessment: 28 year old male presented to ED for worsening back found with osteodisckitis - Patient Problems (1) Back pain Comment: MRI confirmed osteomyelitis/discitis with small anterior phlegmon Appreciate NS consultation and ID consultation PICC placed 3/5 Plan ceftaroline, first dose tomorrow in preparation for home infusions. Discussed h/o IVDU, pt in remission since December 2017 and is engaged in intensive outpatient rehab programs 5/7 days a week. He has declined opiates duringthis admission. He denies any remission since 12/2017. He is functional, lives with family and I believe a good candidate for outpatient therapy. Additionally, I do not think we would be successful in attempting to force a prolonged inpatient stay on this gentleman. (2) Opiate dependence Comment: -Istop confirmed he was tapered from 12 mg am , 8 mg pm down to 8 mg bid starting in November. - no Opiate while on suboxone - In remission since December, (3) DVT prophylaxis Comment: - Heparin SQ
[2018-12-02] MEDS ORDERED: Mouth Piece, Nicotine* 1 EACH CARTRIDGE INH ONE (16:00)
[2018-12-02] MEDS: cefTRIAXone(*) 2 GM in NS 0.9% 100 ML* 100 ML IVPB SCH (17:35)
--- NOTE | 2018-12-02 19:17 | CONS ---
CONSULTATION REPORT: DATE OF CONSULT: 12/02/18 REQUESTING PHYSICIAN: Dr. Orourke. CONSULTING SERVICE: Infectious Disease. REASON FOR CONSULT: Spine infection. IMPRESSION: 1. Two weeks of back pain, chills, sweats, and MRI shows enhancement of vertebral body endplate of T9 and T10 and enhancement of the disk anteriorly. There is mild epidural thickening and enhancement of T9 and T10 with moderate canal stenosis, small posterior disk protrusion at T11 and T12. He has a vertebral osteodiskitis and epidural abscess and is neurologically intact. Blood cultures are negative. He does have teeth in various degrees of decay, which is probably the source. 2. Depression. RECOMMENDATIONS: Continue vancomycin single trough 15 to 20 here and ceftriaxone, and for discharge we will plan on ceftaroline 600 mg IV twice daily. He is not in an area convenient to any infusion centers and does not have transportation, so will probably need to do at this home. He will have a weekly CBC, CMP, and CRP, and follow up with me in 1 or 2 weeks. He knows to return to the hospital for any worsening back pain or weakness in his legs, he has none of that currently. HISTORY OF PRESENT ILLNESS: This is a 28-year-old man admitted with fever and back pain. He had a week and half of mid back pain that was slowly worsening and on Saturday woke up with much worsening pain. He came to the hospital and found to have elevated sed rate and CRP of 127. He has been having fevers, chills, and sweats at home. He eventually had an MRI yesterday with results as above. Blood cultures were taken on admission. He has been on no antibiotics as an outpatient, they have come back negative. He has had no return of fever. CRP is 142 today. His back pain is a little bit better. He has no weakness, pain, or tingling in his legs. He has had some teeth giving him trouble, which has been going on over the last few years one on the top recently has been more painful. He has been on no antibiotics as an outpatient. There is no prosthetic material present. PAST MEDICAL HISTORY: 1. Opiate use disorder on Suboxone therapy. 2. Depression. MEDICATIONS: 1. Tylenol. 2. Suboxone. 3. Flexeril. 4. Gabapentin. 5. Heparin subcutaneous injection. 6. Ketorolac. 7. Nicotine inhaler, lozenge and patch. 8. Ceftriaxone 2 g a day. 9. Sertraline. 10. Vancomycin 1 g every 6 hours. ALLERGIES: BENADRYL. FAMILY HISTORY: No recurrent infections. SOCIAL HISTORY: He lives in [place] with his mother. No travel or sick contacts. REVIEW OF SYSTEMS: All negative except as noted above to 14-point review. PHYSICAL EXAM: Vital Signs: Temperature 37, heart rate 77, respiratory rate 16 , blood pressure 131/77, oxygen saturation 100% on room air. In general, he is awake, not in distress. Neurologic: He is oriented x3. Follows all commands. HEENT: There is no conjunctival hemorrhage. Oropharynx: Without lesions. Teeth in various states of decay without obvious gum abscess. Neck is supple without mass. Lymph Nodes: There is no cervical, supraclavicular, inguinal, axillary, or epitrochlear lymphadenopathy. Heart: Regular rate and rhythm without murmurs, rubs, or gallops. Lungs are clear to auscultation bilaterally. Abdomen: Soft, nontender, nondistended. There are bowel sounds present. Skin: There are no rashes or splinter hemorrhages. Musculoskeletal: There is mid spine tenderness to palpation and paraspinal muscle tenderness to palpation. Neurologic: Strength is 5/5 in the quadriceps, tibialis anterior , and gastrocnemius bilaterally. Sensation is intact to light touch in the lower extremities bilaterally. There is no lower extremity clonus in either leg. LABORATORY DATA: Creatinine 0.6. White blood cell count 5, hemoglobin 12, platelets 138. Please see impressions and recommendations outlined above, which I discussed with Dr. Orourke. Thank you for asking me to see Mr. Sofia in consultation. [id number]/[facility] #: [id number] [facility]
[2018-12-02] MEDS: Gabapentin CAP(*) 300 MG PO PRN (19:28)
[2018-12-02] MEDS: Lidocaine Patch REMOVE* 1 NOTE MISC SCH (20:51)
[2018-12-02] MEDS: Nicotine Patch Removal NOTE FOLLOW UP SCH (20:51)
[2018-12-02] MEDS: Zolpidem TAB* 10 MG PO PRN (23:30)
[2018-12-03] MEDS: Vancomycin(*) 1,000 MG in NS 0.9% 250 ML* 250 ML IVPB SCH ×3 (02:23→14:23)
[2018-12-03] MEDS: Cyclobenzaprine TAB* 10 MG PO PRN (03:41)
[2018-12-03] MEDS: Ketorolac TAB * 10 MG TAB PO PRN ×2 (05:30→14:18)
[2018-12-03] MEDS: Heparin VIAL(*) 5000 UNITS/ML VIAL (FIVE THOUSAND) SUBCUT SCH ×2 (05:31→14:19)
[2018-12-03] MEDS: Lidocaine PATCH 5%* 1 PATCH TRANSDERM SCH (08:50)
[2018-12-03] MEDS: Buprenorphine TAB* 8 MG SL SCH ×2 (08:51→20:39)
[2018-12-03] MEDS: Gabapentin CAP(*) 300 MG PO PRN (08:52)
[2018-12-03] MEDS: Sertraline* 100 MG TAB PO SCH (08:53)
[2018-12-03] MEDS: Nicotine PATCH 14 MG/24 HR* PATCH TRANSDERM SCH (08:54)
[2018-12-03] MEDS: cefTRIAXone(*) 2 GM in NS 0.9% 100 ML* 100 ML IVPB SCH (16:37)
[2018-12-03] MEDS ORDERED: Vancomycin(*) 1,000 MG in NS 0.9% 250 ML* 250 ML IVPB ONE (18:30)
[2018-12-03 20:36] VITALS: BP 138/74
[2018-12-03] MEDS: Lidocaine Patch REMOVE* 1 NOTE MISC SCH (21:17)
[2018-12-03] MEDS: Nicotine Patch Removal NOTE FOLLOW UP SCH (21:17)
--- NOTE | 2018-12-04 00:14 | DS ---
CC: Dr. Kimberlee Nieves; Dr. Jose Antonio Willard * DISCHARGE SUMMARY: DATE OF ADMISSION: 11/29/18 DATE OF DISCHARGE: 12/03/18 PRIMARY CARE PROVIDER: Dr. Kimberlee Nieves. DISPOSITION ON DISCHARGE: Home. CONDITION ON DISCHARGE: Stable. PRIMARY DIAGNOSIS: Discitis/osteomyelitis with anterior phlegmon. SECONDARY DIAGNOSES: Include: 1. 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 2. Gastroesophageal reflux disease. 3. Depression. 4. Tobacco use disorder. MEDICATIONS ON DISCHARGE: The patient is being sent home with decline in home infusion for: 1. Vancomycin 3 times a day and ceftriaxone through syringe, the patient has been trained, begin tomorrow after his last dose of vancomycin tonight. 2. Zolpidem 10 mg in the evening. 3. Zoloft 100 mg daily. 4. Omeprazole 40 mg daily. 5. Suboxone 8/2 twice daily. 6. Ketorolac 10 mg every 6 hours as needed, dispensed 40 tabs. 7. Tylenol 650 mg as needed. 8. Gabapentin 600 mg twice daily as needed. 9. Cyclobenzaprine 10 mg 3 times a day as needed. PERTINENT LABORATORY DATA: White blood cell count on discharge 5.8, ESR 49, CRP 142.7. PERTINENT IMAGING DURING THE HOSPITAL STAY: Thoracic MRI, impression: Findings concerning for T9-T10 osteomyelitis, diskitis with likely adjacent anterior epidural phlegmon abscess, associated moderate canal stenosis with adjacent mild flattening of the spinal cord at T9-T10 and subtle abnormality at T10 central cord signal. CONSULTATIONS DURING THE COURSE OF HOSPITAL STAY: ID and Neurosurgery. HISTORY OF PRESENT ILLNESS AND HOSPITAL COURSE: This is a 28-year-old man with past medical history as outlined in history of present illness on day of admission, currently in remission of polysubstance abuse including intravenous drugs, developed worsening back pain on top of what usually is chronic back pain , which was evaluated on MRI, notable for osteodiskitis with a small anterior phlegmon. Neurologically intact, seen by Neurosurgery. Recommended antibiotic therapy as guided by Infectious Diseases with no surgical intervention at this time. Started on ceftriaxone and vancomycin in the hospital and will be discharged with his PICC line to continue at home with weekly CMP, CBC, and CRPs, and follow up with Dr. Willard in 1 to 2 weeks. He had leg pain on presentation that resolved with antibiotics and his back pain improved during the course of the hospital stay. He refrained from tobacco during this hospital stay, was precontemplative in respect to tobacco cessation. There were no complications during the course of this hospital stay. The patient is quite motivated to adhere to recommended therapy and improve. At followup please: 1. Follow labs as indicated above, weekly CRP, CMP, and CBC. 2. Please ensure the patient follows up with Dr. Willard in 1 to 2 weeks. 3. No other specific labs or vitals that need followup. Reasons to return to the hospital including but not limited to recurrent or worsening symptoms including worsening back pain or leg pain, neurological dysfunction which would include paresthesias or weakness, bladder or bowel dysfunction, nausea, vomiting, and inability to obtain or tolerate medications discussed with the patient at length. He acknowledged understanding. TIME SPENT: Greater than 50 minutes was spent on discharge of the patient, greater than half was spent [id number] with the patient. [id number]/[facility] #: [id number] MTDD
== END 2018-12-03 21:50 | disposition home or self-care (01) | DRG 49 ==
LOC: ED 19:34 → INTOOBSV 11-30 01:06 → SSU 11-30 01:06 → INTOOBSV 12-01 11:00 → OBSVTOIN 12-01 11:00
PROVIDERS: ADMIT Internal Medicine; ATTEND Internal Medicine
PROC: 02HV33Z Insertion of Infusion Device into Superior Vena Cava, Percutaneous Approach (ICD-10-PCS; principal; 2018-12-03)
DX: G06.1 Intraspinal abscess and granuloma (principal); M46.24 Osteomyelitis of vertebra, thoracic region; M46.34 Infection of intervertebral disc (pyogenic), thoracic region; F11.20 Opioid dependence, uncomplicated; M46.44 Discitis, unspecified, thoracic region; F17.210 Nicotine dependence, cigarettes, uncomplicated; R40.2412 Glasgow coma scale score 13-15, at arrival to emergency department; K21.9 Gastro-esophageal reflux disease without esophagitis; G89.29 Other chronic pain; F32.9 Major depressive disorder, single episode, unspecified; D69.6 Thrombocytopenia, unspecified; Z88.8 Allergy status to other drugs, medicaments and biological substances
CPT/HCPCS: 36415; 72070; 72157; 72158; 74177; 80048; 80053; 80202; 81003; 81015; 82550; 82565; 83605; 83690; 84520; 85025; 85379; 85610; 85652; 86140; 86703; 87040; 87641; 99285; A9270-GY; A9579; C1751; G0378; J0696; J1644; J1885; J2270; J3370; Q9967